=== PATIENT | female | born 1990 | race Caucasian/White ===

== ENCOUNTER 2025-05-02 15:36 | Outpatient (OUT) | payer MEDICAID, SELFPAY ==
--- OUTSIDE RECORDS SUMMARY | 2025-05-02 15:50 | XMS_ITS | Clinical Summary ---
Author Organization [facility] Address [address] [place] [address] Care Team Providers Care Sales Service Manager Name Role Phone Zuleima Navarro MD Primary Care Provider [phone] Allergies Active AllergyReactionsCriticalityNoted BbqvGkcxzmubKzagtrqjkfvLndsa86/05/2023 Medications MedicationSigDispense QuantityRefillsLast FilledStart DateEnd DateStatus 27-1 MG tablet 1 (one) time each day at the same time.03/17/2022ctive Encounters DateTypeDepartmentCare IbrvFlowhzfudgw25/22/2025Telephone [facility] [address] [place] [phone] Clement Pedersen MD from Last 3 Months Family History Medical HistoryRelationNameCommentsNo Known ProblemsBrotherNo Known Problems DaughterThyroid cancerMaternal GrandmotherBreast cancerMother's SisterNo Known ProblemsSisterNo Known ProblemsSonRelationNameStatusCommentsBrotherDaughter FatherAliveMaternal GrandmotherDeceasedMotherAliveMother's SisterSister2 sisters Son Social History Tobacco UseTypesPacks/DayYears UsedDateSmoking Tobacco: NeverSmokeless Tobacco: Never Tobacco Cessation:Counseling Given: Not Answered Alcohol UseStandard Drinks/WeekCommentsNever0 (1 standard drink = 0.6 oz pure alcohol)Caffeine intake : 1-2 cups per day of coffee / teaCommentsNoSex and Gender InformationValueDate RecordedSex Assigned at BirthNot on fileLegal NgsEjzjlt54/15/2023 7:13 PM EDTGender IdentityNot on fileSexual OrientationNot on file Last Filed Vital Signs Vital SignReadingTime TakenCommentsBlood Aiqbbdwv606/8006/11/2022 2:06 PM EDT Pulse--Temperature--Respiratory Rate--Oxygen Saturation--Inhaled Oxygen Concentration--Tsqpzo65.7 kg (178 lb)12/14/2022 2:06 PM KXPHrwhdg540.2 cm (5' 7 )11/14/2021 12:00 PM EDTBody Mass Index27.8811/14/2021 12:00 PM EDT Plan of Treatment DateTypeDepartmentCare Team (Latest Contact Info)Mdcsdwhcvhf41/05/2025 1:00 PM ESTInitial [facility] [address] [place] [address] Health MaintenanceDue DateLast DoneCommentsHPV/Qztfni24/ Cervical Cancer Dhlxtfyau27/22/2024Pap Smear, 05/02/2021, 04/15/2020Influenza Vaccine (#1)2025 Procedures Procedure NamePriorityDate/TimeAssociated DiagnosisCommentsPAP SMEARRoutine 05/02/2021 12:00 AM EDTTHINPREP TIS PAP REFLEX HPV MRNA E6/E7 (77914)Routine 01/30/2019 from Last 3 Months or Most Recently Relevant to Health Maintenance Results * Pap Smear (05/02/2021 12:00 AM EDT)Specimen (Source)Anatomical Location / LateralityCollection Method / VolumeCollection TimeReceived TimeSwabCervical swab / Unknown Narrative Authorizing ProviderResult TypeResult StatusHistorical Provider MDLAB CYTOLOGY ORDERABLESFinal ResultPerforming OrganizationAddressCity/State/ZIP CodePhone Number [facility] * THINPREP TIS PAP REFLEX HPV MRNA E6/E7 (05271) (01/30/2019)ComponentValueRef RangeTest MethodAnalysis TimePerformed AtPathologist SignatureCLINICAL INFORMATION:None givenNOMS LEGACY EXTERNAL LABLMP:None givenNOMS LEGACY EXTERNAL LABPREV. PAP:None givenN[facility] LEGACY EXTERNAL LABPREV. BX:None given [facility] LABSOURCE:None givenN[facility]GAC[facility] EXTERNAL LABSTATEMENT OF ADEQUACY:SEE COMMENTNOMS LEGACY EXTERNAL LABComment: Satisfactory for evaluation. Endocervical/transformation zone component present. INTERPRETATION/RESULT:Negative for intraepithelial lesion or malignancy.[facility] LABCOMMENT:This Pap test has been evaluated with computer assisted technology.[facility] LABCYTOTECHNOLOGIST:SEE COMMENTSee Note:[facility] EXTER[facility] LABComment: Reference Range: ZL, CT(ASCP) CT screening location: [facility], [address] [place] [address]. COMMENTSEE COMMENTNOMS LEGACY EXTERNAL LABComment: EXPLANATORY NOTE: The Pap is a screening test for cervical cancer. It is not a diagnostic test and is subject to false negative and false positive results. It is most reliable when a satisfactory sample, regularly obtained, is submitted with relevant clinical findings and history, and when the Pap result is evaluated along with historic and current clinical information. Specimen (Source)Anatomical Location / LateralityCollection Method / Volume Collection TimeReceived Time01/30/2019 Narrative Authorizing ProviderResult TypeResult StatusMona J Nataprawi DOECW LABSFinal ResultPerforming OrganizationAddressCity/State/ZIP CodePhone Number [facility] from Last 3 Months or Most Recently Relevant to Health [place] [address] Care Teams Team MemberRelationshipSpecialtyStart DateEnd Zuleima Navarro MD PCP - GeneralFamily Medicine12/14/22
--- OUTSIDE RECORDS SUMMARY | 2025-05-02 15:50 | XMS_ITS | Encounter Summary ---
Author Organization [facility] Address [address] [facility] [place] [address] Care Team Providers Care Job Setter Name Role Phone Zuleima Navarro MD Primary Care Provider [phone] Encounter Details DateTypeDepartmentCare Team (Latest Contact Info)Fvekcxvpdoq60/22/2025Telephone [facility] [address] [facility] [address] [place] [address] Clement Pedersen MD [address] [facility] [address] [place] [address] Social History Tobacco UseTypesPacks/DayYears UsedDateSmoking Tobacco: NeverSmokeless Tobacco: NeverAlcohol UseStandard Drinks/WeekCommentsNever0 (1 standard drink = 0.6 oz pure alcohol)Caffeine intake : 1-2 cups per day of coffee / teaComments NoSex and Gender InformationValueDate RecordedSex Assigned at BirthNot on file Legal RjoEnzoko17/15/2023 7:13 PM EDTGender IdentityNot on fileSexual OrientationNot on filedocumented as of this encounter Miscellaneous Notes * Telephone Encounter - Estrada Gurrola LPN - 05/02/2025 2:47 PM EDT Called and spoke with pt regarding positive test. LMP 03/26/25 regular. . MAB x2 nd 2021. BJP. Insurance medicaid. Pt scheduled for 05/16/25 for [place] Pt wanting HCG at this time. Order sent to [facility]. * Telephone Encounter - Mara Doshi - 05/02/2025 1:07 PM EDT Pt has one at home positive test. LMP 03/26/25. 4th . Requesting call back [phone] documented in this encounter Plan of Treatment DateTypeDepartmentCare Team (Latest Contact Info)Adqihagxvsu39/05/2025 1:00 PM ESTInitial [facility] [address] [place] [address] NameTypePriorityAssociated DiagnosesOrder SchedulehCG, quantitativeLabRoutine examination or test, positive result ([facility]) History of miscarriage Expected: 05/02/2025 (Approximate), Expires: 05/02/2026documented as of this encounter Visit Diagnoses Diagnosis examination or test, positive result ([facility]) examination or test, positive result History of miscarriage Personal history of other genital system and obstetric disorders documented in this encounter Care Teams Team MemberRelationshipSpecialtyStart DateEnd Date Zuleima Navarro MD PCP - GeneralFamily Medicine12/14/22documented as of this encounter
== END 2025-05-02 15:37 | disposition home or self-care (01) ==
LOC: LAB 15:40
PROVIDERS: Visit Provider Obstetrics & Gynecology
DX: Z32.01 Encounter for pregnancy test, result positive (principal); Z87.59 Personal history of other complications of pregnancy, childbirth and the puerperium
CPT/HCPCS: 36415; 84702

== ENCOUNTER 2025-06-13 14:09 | Outpatient (OUT) | payer MEDICAID, SELFPAY ==
--- OUTSIDE RECORDS SUMMARY | 2009-07-16 08:00 | XMS_ITS | Continuity of Care Document ---
Author Organization [facility], [place] Address [address] [place] [address] Phone Care Team Providers Care Sales Representative Uniforms Name Role Phone Evelin UFNES Maxi Unavailable Unavailable Procedures Procedure Date OFFICE/OUTPATIENT VISIT, EST Advance Directives Directive Yes / No Effective Date File Name No Information Encounters Encounter Description Practice Location Reason(s) For Visit Diagnoses Date Provider Providers Copied on Encounter OFFICE/OUTPATI ENT VISIT, EST [facility] [place], [address], [place], [id number], [place] tel:[phone] [facility] [place] No Information Evelin LANDAVERDE Maxi. [address], [place], [id number], [place]. tel:[phone] Family History Family Member Type Diagnosis Age At Onset No Information Payers Payer name Insurance type Covered constitution party ID Authoriza tion(s) No Information Social History Type Description Quantity Date Captured Comments Sex Female Smoking Status No Information Chief Complaint And Reason For Visit No Information Reason For Referral Reason For Referral No Information History Of Present Illness Encounter Date Complaint History Of Prese nt Illness No Information Functional Status Date Functional Assessmen t No Information Instructions Date Instruction Additional Infor mation No Information Assessments Type Assessment Date No Information Patient Care Teams Name Effective Dates (start - stop) Status Members No Information
--- OUTSIDE RECORDS SUMMARY | 2025-06-13 14:14 | XMS_ITS | Clinical Summary ---
Author Organization [facility] Address [address] [place] [address] Care Team Providers Care Insole Bottom Filler Name Role Phone Zuleima Navarro MD Primary Care Provider [phone] Allergies Active AllergyReactionsCriticalityNoted KdlrWcwhuhntVceqcclaqluRqlfq98/05/2023 Medications MedicationSigDispense QuantityRefillsLast FilledStart DateEnd DateStatus 27-1 MG tablet 1 (one) time each day at the same time.03/17/2022ctive Encounters DateTypeDepartmentCare OsboCmmtonwwkxh58/13/2025 9:30 AM ESTAncillary Procedure [facility] [address] [place] [phone] related condition in first trimester ([facility]); Multigravida of advanced maternal age in first trimester ([facility])05/24/2025 Zubvpz7505/16/2025 1:00 PM ESTInitial [facility] [place] [facility] [address] [place] [phone] [place]: 7w2d05/16/20258903Setoag05/23/2025Results Follow-Up [facility] [address] [place] [phone] Clement Pedersen MD hCG, esbdtognrjbw02/22/2025linisync Result Encounter [facility] External Department Unsolicited Clement Pedersen MD 05/02/2025Telephone [facility] [place] [facility] [address] [place] [address] Clement Pedersen MD from Last 3 Months Family History Medical HistoryRelationNameCommentsNo Known ProblemsBrotherNo Known Problems DaughterNo Known ProblemsFatherParkinsonismMaternal GrandfatherThyroid cancer Maternal GrandmotherCyst on thyroidMotherThyroid cancerMotherBreast cancer Mother's SisterHeart diseasePaternal GrandfatherPneumoniaPaternal GrandmotherNo Known ProblemsSisterNo Known ProblemsSonRelationNameStatusCommentsBrother Qyzmouiix9BsrxrvBrcpnBkoarhtc GrandfatherDeceasedMaternal GrandmotherDeceased MotherAliveMother's SisterPaternal GrandfatherDeceasedPaternal Grandmother DeceasedSister2 sistersSonx1 Social History Tobacco UseTypesPacks/DayYears UsedDateSmoking Tobacco: NeverSmokeless Tobacco: Never Tobacco Cessation:Counseling Given: Not Answered Alcohol UseStandard Drinks/WeekCommentsNever0 (1 standard drink = 0.6 oz pure alcohol)Caffeine intake : noneEstimated Date of DeliveryCommentsYes 6Based on last menstrual period of 03/26/2025Sex and Gender Information ValueDate RecordedSex Assigned at BirthNot on fileLegal PeuStdbhu39/15/2023 7:13 PM EDTGender IdentityNot on fileSexual OrientationNot on file Last Filed Vital Signs Vital SignReadingTime TakenCommentsBlood Dezjobsf320/8006 2:06 PM EDT Pulse--Temperature--Respiratory Rate--Oxygen Saturation--Inhaled Oxygen Concentration--Vpshiq87.7 kg (178 lb)12/14/2022 2:06 PM PIFKlwtlm656.2 cm (5' 7 )11/14/2021 12:00 PM EDTBody Mass Index27.8805 12:00 PM EDT Plan of Treatment DateTypeDepartmentCare Team (Latest Contact Info)Avvfkcvynvr74/10/2025 11:15 AM ESTInitial [facility] [place] [facility] [address] [place] [phone] Clement Pedersen MD [address] [place] [address] Health MaintenanceDue DateLast DoneCommentsHPV/Kblxba29/ Cervical Cancer Zjwaduybt62/22/2024ap Smear, 05/02/2021, 04/15/2020COVID-19 Vaccine ( season)/, 01/31/2021 Influenza Vaccine (#1)2025Pneumococcal Vaccine: Pediatrics (0 to 5 Years) and At-Risk Patients (6 to 64 Years)Aged OutNo longer eligible based on patient's age to complete this topic Goals GoalPatient Goal TypeAssociated ProblemsRecent ProgressPatient-Stated?Author Reminders Care PlanOB RemindersNoEstrada Gurrola LPN Procedures Procedure NamePriorityDate/TimeAssociated DiagnosisCommentsUS OB TRANSVAGINAL Jnrvpul7405/24/2025 10:03 AM EST related condition in first trimester ([facility]) Multigravida of advanced maternal age in first trimester ([facility]) [facility] PREG QUANT UXYJvdgqjw36/22/2025 3:54 PM EDT PAP AHCZAMlinvgs42/22/2021 12:00 AM EDTTHINPREP TIS PAP REFLEX HPV MRNA E6/E7 ([id number])Uxafcsr9701/30/2019 from Last 3 Months or Most Recently Relevant to Health Maintenance Results * OB transvaginal (05/24/2025 10:03 AM EST)Anatomical RegionLaterality ModalityBodyUltrasoundStudy GAStudy DateStudy EDDWorking MICHELA (Source) / (Last Menstrual Period)Fetus A MeasurementsValueGA (days) CRLSac DiameterBiparietal DiameterHead CircumferenceAbdominal Circumference Femur LengthFetal Ulna LengthFetal Humerus LengthFetal Tibia LengthHeart Rate YOLK SAC MEASUREMENTCERVICAL W/FUNDAL PRESSURECERVICAL W/ VALSALVASpecimen (Source)Anatomical Location / LateralityCollection Method / VolumeCollection TimeReceived Time Narrative 05/24/2025 12:46 PM EST Table formatting from the original result was not included. Images from the original result were not included. ?? Obstetrics & Gynecology ? [address] ? [address] ? [address] ?[address], [facility] [address] ? [place] [address] ?[place] [address] ? - - - - - - - - - - - - - - - - - - - - - - - - - - - - - - - - - - - - - - - - - - - - - - - - - - - - - - - - - - - - - - - - - - ?Early Assessment Patient name: Mandie Billings : 1990 (34 y.o.) Date of exam: 05/24/25 - - - - - - - - - - - - - - - - - - - - - - - - - - - - - - - Indication: first trimester screening, AMA Surgical History: none Method: Transvaginal ultrasound examination View: Adequate - - - - - - - - - - - - - - - - - - - - - - - - - - - - - - - Type of gestation: De La Rosa Number of embryos: 1 - - - - - - - - - - - - - - - - - - - - - - - - - - - - - - - Dating: Method of dating: Date: Details: Gest Age: MICHELA: Assigned dating: LMP 03/26/25 ??8 w 3 d 12/31/25 [x] Ultrasound 05/24/25 CRL ??8 w 4 d 12/30/25 [] - - - - - - - - - - - - - - - - - - - - - - - - - - - - - - - Fetus: Gestational sac: visualized Location: Intrauterine Yolk sac: visualized (3.5 mm) Amniotic sac: visualized Embryo: visualized Cardiac activity: present FHR: 176 bpm - - - - - - - - - - - - - - - - - - - - - - - - - - - - - - - Maternal Structures: Uterus: Visualized Size: 10.9 x 7.9 x 6.8 cm ??Volume: 307.9 cm?? Appearance: normal in size and contour Right ovary: Visualized Size: 2.8 x 3.9 x 1.9 cm ??Volume: 10.7 cm?? Appearance: The right ovary contains the corpus luteal cyst: thick-walled, mildly echogenic (2.1 x 1.6 x 2.1 cm) No adnexal mass visualized Left ovary: Visualized Size: 3.2 x 1.7 x 1.6 cm ??Volume: 4.4 cm?? Appearance: no cysts visualized No adnexal mass visualized - - - - - - - - - - - - - - - - - - - - - - - - - - - - - - - - - - - - - - - - - - - - - - - - - - - - - - - - - - - - - - - - - - Impression: There is a single intrauterine having normal cardiac activity. Today's ultrasound size is equal to the LMP dates. The right ovary contains the corpus luteal cyst. *Please note that a normal ultrasound does not rule out anomalies* - - - - - - - - - - - - - - - - - - - - - - - - - - - - - - - - - - - - - - - - - - - - - - - - - - - - - - - - - - - - - - - - - - Ordering/Reading Provider: Clement Pedersen M.D. ??Colorer Hides And Skins: Nico Mo RDMS Authorizing ProviderResult TypeResult StatusClement WESTBROOK OB US PROCEDURESFinal Result * [facility] PREG QUANT HCG (05/02/2025 3:54 PM EDT)ComponentValueRef RangeTest Method Analysis TimePerformed AtPathologist SignatureHCG QUANTITATIVE5,016mIU/mLTBH Comment: 5-50 ? 0.2-1 WEEK 50-500 ? 1-2 WEEKS 100-5,000 ?2-3 WEEKS 500-10,000 ? 3-4 WEEKS 1,000-50,000 ?? 4-5 WEEKS 10,000-100,000 5-6 WEEKS 15,000-200,000 6-8 WEEKS 10,000-100,000 2-3 MONTHS Specimen (Source)Anatomical Location / LateralityCollection Method / Volume Collection TimeReceived Time05/02/2025 3:54 PM EDT1 3:55 PM EDT Narrative [facility] - 05/02/2025 5:12 PM EDT Authorizing ProviderResult TypeResult StatusClement Pedersen MDCLINISYNCFinal ResultPerforming OrganizationAddressCity/State/ZIP CodePhone Number [facility]IN[facility]NC [facility] * Pap Smear (05/02/2021 12:00 AM EDT)Specimen (Source)Anatomical Location / LateralityCollection Method / VolumeCollection TimeReceived TimeSwabCervical swab / Unknown Narrative Authorizing ProviderResult TypeResult StatusHistorical Provider MDLAB CYTOLOGY ORDERABLESFinal ResultPerforming OrganizationAddressCity/State/ZIP CodePhone Number [facility] * THINPREP TIS PAP REFLEX HPV MRNA E6/E7 ([id number]) (01/30/2019)ComponentValueRef RangeTest MethodAnalysis TimePerformed AtPathologist SignatureCLINICAL INFORMATION:None [...] Reference Range: ZL, CT(ASCP) CT screening location: [facility] [place], [address] [place] [address]. COMMENTSEE COMMENTNOMS LEGACY EXTERNAL LABComment: EXPLANATORY NOTE: [...] TimeReceived Time01/30/2019 Narrative Authorizing ProviderResult TypeResult StatusMona Devan Nataprtammy DOECW LABSFinal ResultPerforming OrganizationAddressCity/State/ZIP CodePhone Number [facility] from Last 3 Months or Most Recently Relevant to Health Maintenance Additional Health Concerns Active ProblemsNoted DateDiagnosed DateOB Zibiwkmdz21/05/2025 Insurance * Guarantor: Justin Billings TypeRelation to PatientDate of BirthPhone Billing AddressPersonal/LijoceXhuy[birth year][id number] [place] [phone] Care Teams Team MemberRelationshipSpecialtyStart DateEnd Date Zuleima Navarro MD [address] [place] [address] PCP - [facility]Davis [facility] Clinicsly Medicine12/14/22
[2025-06-13 14:37] LABS: Hematocrit 36.9 % (36.0-48.0); Hemoglobin 12.2 g/dL (12.0-16.0); Immature Granulocytes Abs Auto 0.03 10^3/uL (0.00-0.03); Immature Granulocytes Pct Auto 0.4 % (0.0-0.5); Lymphocytes Absolute Auto 1.7 10^3/uL (1.2-3.8); Mean Corpuscular HGB Conc 33.1 g/dL (29.9-35.2); Mean Corpuscular Hemoglobin 29.2 pg (26.7-34.0); Mean Corpuscular Volume 88.3 fL (81.0-99.0); Platelet Count 235 10^3/uL (150-450); Red Blood Count 4.18 10^6/uL (4.20-5.40); White Blood Count 7.5 10^3/uL (4.0-11.0)
[2025-06-13 14:40] LABS: Glucose Urine UA NEGATIVE (NEGATIVE)
[2025-06-13 15:04] LABS: Cannabinoid Screen Urine NEGATIVE (NEGATIVE); Methamphetamines Screen Urine NEGATIVE (NEGATIVE); Tricyclic Antidepressant Urine NEGATIVE (NEGATIVE)
[2025-06-13 16:12] LABS: Cast Seen? NONE SEEN #/LPF (NONE SEEN); Crystals Seen? None Seen #/HPF (None Seen)
[2025-06-14 05:08] LABS: Rubella Antibodies, IgG 2.03 index (Immune >0.99)
[2025-06-14 13:08] LABS: Rapid Plasma Reagin, Quant Non Reactive titer (NonRea<1:1)
== END 2025-06-13 14:10 | disposition home or self-care (01) ==
LOC: LAB 14:10
PROVIDERS: Visit Provider Obstetrics & Gynecology
DX: Z34.81 Encounter for supervision of other normal pregnancy, first trimester (principal); Z02.83 Encounter for blood-alcohol and blood-drug test
CPT/HCPCS: 36415; 80307; 81001; 85025; 86592; 86762; 86803; 86850; 86900; 86901; 87086; 87340; 87389